=== PATIENT | male | born 1930 | race African-American/Black ===

== ENCOUNTER 2017-07-29 07:55 | Day surgery (SDC) | payer OTHER ==
[~2017-07-29] VITALS: Ht 167.6 cm; Wt 100.5 kg
[2017-07-29] VITALS (8 sets, daily range): BP systolic 143–168; BP diastolic 62–81; PULSE 52–84; RESP 16–17; TEMP 98–98.8; O2SAT 97–99
[2017-07-29] MEDS ORDERED: IODIXANOL 320 MG/ML 50 ML VIAL (for Rad CT) OTHER ONE (07:56)
[2017-07-29] MEDS ORDERED: POVIDONE IODINE 5% (ANTISEPSIS KIT) 4 APPLICATIONS EACH NARE PRN (08:45)
[2017-07-29] MEDS ORDERED: METOPROLOL TARTRATE 25 MG TAB PO PRN (08:45)
[2017-07-29] MEDS ORDERED: LACTATED RINGER'S 1000 ML IV PRN (08:45)
[2017-07-29] MEDS ORDERED: INSULIN HUMAN REGULAR 1,000 UNITS/10 ML VIAL SQ PRN (08:45)
[2017-07-29] MEDS ORDERED: LORazepam 1 MG TAB SL SCH (08:45)
[2017-07-29] MEDS ORDERED: CHLORHEXIDINE GLUCONATE 2 % 1 PACK (2 CLOTHS) TOPICAL SCH (08:45)
[2017-07-29] MEDS ORDERED: POVIDONE IODINE 5% (ANTISEPSIS KIT) 4 APPLICATIONS EACH NARE SCH (08:45)
[2017-07-29] MEDS ORDERED: CHLORHEXIDINE GLUCONATE 2 % 1 PACK (2 CLOTHS) TOPICAL PRN (08:45)
[2017-07-29] MEDS ORDERED: ceFAZolin 2 GM PREMIX 50 ML IV SCH (08:45)
[2017-07-29] MEDS ORDERED: VANCOMYCIN 1000 MG/NS 250 ML IV SCH ×2 (08:45)
[2017-07-29] MEDS ORDERED: SODIUM CHLORID 0.9% 500 ML IV PRN (08:45)
[2017-07-29] MEDS ORDERED: ALLO100T PO (08:50)
[2017-07-29 08:53] LABS: BASOPHIL % 0.8 % (0.0-2.0); EOSINOPHIL # 0.2 TH/MM3 (0-0.4); EOSINOPHIL % 4.5 % (0.0-4.0); HEMATOCRIT 29.8 % (39.0-51.0); HEMOGLOBIN 9.9 GM/DL (13.0-17.0); LYMPH % 23.1 % (9.0-44.0); LYMPHOCYTE # 1.1 TH/MM3 (1.0-4.8); MEAN CELL VOLUME 92.6 FL (80.0-100.0); MEAN CORPUSCULAR HEMOGLOBIN 30.7 PG (27.0-34.0); MEAN CORPUSCULAR HGB CONC 33.1 % (32.0-36.0); MEAN PLATELET VOLUME 8.2 FL (7.0-11.0); MONO % 8.9 % (0.0-8.0); MONOCYTE # 0.4 TH/MM3 (0-0.9); NEUT % 62.7 % (16.0-70.0); PLATELET COUNT 207 TH/MM3 (150-450); RED BLOOD COUNT 3.22 MIL/MM3 (4.50-5.90); RED CELL DISTRIBUTION WIDTH 16.2 % (11.6-17.2); WHITE BLOOD COUNT 4.8 TH/MM3 (4.0-11.0)
[2017-07-29] MEDS ORDERED: LOSA100T PO (08:53)
[2017-07-29] MEDS ORDERED: TRAM50TA PO (08:53)
[2017-07-29] MEDS ORDERED: TAMS0.4C4 PO (08:53)
[2017-07-29] MEDS ORDERED: CALC0.25 PO (08:53)
[2017-07-29] MEDS ORDERED: PANT40TA3 PO (08:53)
[2017-07-29] MEDS ORDERED: CHOL10008 PO (08:53)
[2017-07-29] MEDS ORDERED: HYDR-3799 PO (08:53)
[2017-07-29] MEDS ORDERED: FURO40TA PO (08:53)
[2017-07-29] MEDS ORDERED: MUPIROCIN 2% OINT 1 APPLIC/GM SYR NASAL SCH (09:00)
[2017-07-29] MEDS: NS 1000 ML IV SCH (09:00)
[2017-07-29 09:02] LABS: INTERNATIONAL NORMALIZED RATIO 1.1 RATIO; PROTHROMBIN TIME - PATIENT 11.3 SEC (9.8-11.6)
[2017-07-29 09:08] LABS: BICARBONATE 26.8 MEQ/L (21.0-32.0); CALCIUM 9.1 MG/DL (8.5-10.1); CREATININE 4.37 MG/DL (0.60-1.30)
[2017-07-29] MEDS ORDERED: MIDAZOLAM HCL 2 MG/2 ML VIAL ONE (11:50)
[2017-07-29] MEDS ORDERED: PROPOFOL 200 MG/20 ML AMP IV ONE (12:00)
[2017-07-29] MEDS ORDERED: PHENYLEPH/NS 1000 MCG/10 ML SYR IV ONE (12:00)
[2017-07-29] MEDS ORDERED: LIDOCAINE HCL 1% PF 5 ML SYRINGE OTHER ONE (12:00)
[2017-07-29] MEDS ORDERED: GLYCOPYRROLATE 1 MG/5 ML SYRINGE IV PUSH ONE (12:00)
[2017-07-29] MEDS ORDERED: HEPARIN SODIUM - IV 10,000 UNITS/10 ML VIAL ONE ×2 (12:02→12:14)
[2017-07-29] MEDS ORDERED: HEPARIN-NS/PF FLUSH BAG 1,000 ML IV FLUSH ONE ×2 (12:02→12:03)
[2017-07-29] MEDS ORDERED: ceFAZolin INJ 1,000 MG VIAL ONE (12:11)
--- NOTE | 2017-07-29 14:01 | CATHPROC ---
Patient Name: CHRISTY CLAY Study #: [id number] Initial MD: Ariadne Lynch Date of : 1930 Study Date: 07/29/2017 Cardiac Catheterization Report 07/29/2017 2:01:51 PM Financial #: [id number] 1 of 9 Patient Name: CHRISTY CLAY Study #: [id number] Initial MD: Ariadne Lynch Date of : 1930 Study Date: 07/29/2017 Entire Case Report Patient Information Patient Name CHRISTY CLAY Date of 1930 Age 86 years Financial # [id number] Gender M AlternateID Lab Number 6 Room Number DC04 Height (in) 66.0 Height (cm) 167.6 BSA 2.08 Weight (lbs) 220.0 Weight (kg) 100.0 Patient Address/Phone Number Home Address [facility] Home Phone Number [phone] [facility] [place] [address] Study Information Study Number Admission Scheduled Start Study Start [id number] Jul 29 2017 7:55AM 07/29/2017 Jul 29 2017 11:34AM [place] Service Cardiac Pacer/ICD Admit Source Facility Department Other [facility] - Cartoon Artist Physician and Clinical Staff Initial Ariadne Clarke Energy Control Officer Rosanne Sam,COLD MEAT COOK TECH2 Other Anesthesia, POLICY WRITER SALES Recorder Vanessa Parsons,RN Scrub Vero Turner,MOBILE APPLICATION ARCHITECT Procedures Performed Procedure Location (Site) Vessel Name Venogram Fem Vein (right) Femoral Vein Wire insertion Fem Art (right) Femoral Art Wire insertion Fem Vein (right) Femoral Vein 07/29/2017 2:01:51 PM Financial #: [id number] 2 of 9 Patient Name: CHRISTY CLAY Study #: [id number] Initial MD: Ariadne Lynch Date of : 1930 Study Date: 07/29/2017 Equipment Time Pattern Keeper Description Size Mfg Part Number Used/Scraped BIOSCurazy [id number] 12:18 SET, TUBING COOLFLOW * Used INC. *[id number] 12:15 COOK/PACER DILATOR SET (MICRA) FR8-12 Used *[id number] WIRE, GUIDE AMPLATZ STIFF [id number] 12:15 COOK/PACER 3MMJ Used 180CM *[id number] WIRE, GUIDE AMPLATZ STIFF [id number] 12:51 COOK/PACER 3MMJ Used 180CM *[id number] WIRE, HYDROSTEER 150CM [id number] 12:49 DAIG/[employer] 150CM Used ANGLED GLIDE *[id number] ENDOVASCULAR CATHETER, FR5 TRAILBLAZER [id number] 12:49 90CM Used COMPANY .035 *[id number] [id number] 12:15 MEDLINE INDUSTRIES PACK, CCL CUSTOM * Used *[id number] 12:15 MEDLINE PACER STEPHENS, LIMB * 2530 *[id number] Used [id number] 12:15 NAMIC TUBING, HIGH PRESSURE 20" 20" Used *[id number] [id number] 12:17 NAMIC TUBING, HIGH PRESSURE 20" 20" Used *[id number] 12:08 NYCOMED OMNIPAQUE, 300 MG, 50ML 50ML [id number] Used SUTURE, 0 ETHIBOND [CT1] (CX21D), 8pk [id number] 12:15 R[employer] MEDICAL BLANKET,WARM AIR CCL * Used *[id number] 044615 12:48 [employer] LIVEWIRE, QUAD, MED SWEEP FR 6 Used *[id number] 13:45 VITATRON MEDTRONIC MONITOR, PACEMAKER\\ICD 72601V Used 12:15 VITATRON MEDTRONIC MONITOR, PACEMAKER\\ICD 16838G Used [id number] 12:17 VITATRON [employer] SHEATH, INTRODUCER (MICRA) Used *[id number] SYSTEM, TRANS-CATHETER [id number] 12:15 VITATRON MEDTRONIC Used PACING (MICRA) *[id number] Equipment Model, Serial, Lot Number and Expiration Data Description Model Number Serial Number Lot Number Expiration Date CATHETER, FR5 TRAILBLAZER .035 [id number] 08-17-2019 LIVEWIRE, QUAD, MED SWEEP [id number] 10-15-2019 SYSTEM, TRANS-CATHETER PACING [id number] 10-28-2018 (MICRA) WIRE, GUIDE AMPLATZ STIFF [id number] 01-15-2022 180CM WIRE, HYDROSTEER 150CM [id number] 04-16-2020 ANGLENeva DAVENPORT 07/29/2017 2:01:51 PM Financial #: [id number] 3 of 9 Patient Name: CHRISTY CLAY Study #: [id number] Initial MD: Ariadne Lynch Date of : 1930 Study Date: 07/29/2017 Insurance Information Insurance Payor Private Health Insurance Third Constitution Party Third Constitution Party Number [facility] Medication Medication Total Dose (Bolus/Oral) Medication Total Dosage/Unit 2% XYLOCAINE 150 mL HEPARIN 7000 units Medications (Bolus/Oral) Medication Time Given Dosage/Unit Administered By Reason 2% XYLOCAINE 07/29/2017 12:21:24 PM 50 mL Ariadne Lynch 50 mL 2% XYLOCAINE given in lab by Ariadne Lynch in Right Groin via Subcutaneous. Ordered by Suha Lynch. 2% XYLOCAINE 07/29/2017 12:25:40 PM 50 mL Ariadne Lynch 50 mL 2% XYLOCAINE given in lab by Ariadne Lynch in Left Groin via Subcutaneous. Ordered by James Lynch. HEPARIN 07/29/2017 12:39:27 PM 4000 units Anesthesia, POLICY WRITER SALES As per physicians ve rbal order 4000 units HEPARIN given in lab by Anesthesia, POLICY WRITER SALES via Peripheral IV. Ordered by Ariadne Lynch. Reas on: As per physicians verbal order. 2% XYLOCAINE 07/29/2017 12:44:27 PM 50 mL Ariadne Lynch 50 mL 2% XYLOCAINE given in lab by Ariadne Lynch in Right Groin via Subcutaneous. Ordered by Suha Lynch. HEPARIN 07/29/2017 1:05:29 PM 3000 units Anesthesia, POLICY WRITER SALES As per physicians christopher bal order 3000 units HEPARIN given in lab by Anesthesia, POLICY WRITER SALES via Peripheral IV. Ordered by Ariadne Lynch. Reas on: As per physicians verbal order. 07/29/2017 2:01:51 PM Financial #: [id number] 4 of 9 Patient Name: CHRISTY CLAY Study #: [id number] Initial MD: Ariadne Lynch Date of : 1930 Study Date: 07/29/2017 Initial Case Assessment Cardiovascular HR Rhythm NIBP Chest Pain 58 2nd*AVB 196/93 0 Edema Present Skin color Skin None Normal Warm Dry Circulatory - Right Pulses Dorsalis Pedis 2 Scale (0,1,2,3,4,d) Circulatory - Left Pulses Dorsalis Pedis 3 Scale (0,1,2,3,4,d) Circulatory - Lower Extremities Color Lower Right Color Lower Left Normal Normal Neurological State Oriented to time-place- Alert Moves all extremities person Respiration - General Respiration Rate SpO2 (%) (B/min) 18 99 07/29/2017 2:01:51 PM Financial #: [id number] 5 of 9 Patient Name: CHRISTY CLAY Study #: [id number] Initial MD: Ariadne Lynch Date of : 1930 Study Date: 07/29/2017 Final Case Assessment Cardiovascular HR Rhythm NIBP Chest Pain 53 sr 100/59 0 Edema Present Skin color Skin Mild Normal Warm Dry Circulatory - Right Pulses Dorsalis Pedis 2 Scale (0,1,2,3,4,d) Circulatory - Left Pulses Dorsalis Pedis 3 Scale (0,1,2,3,4,d) Circulatory - Lower Extremities Color Lower Right Color Lower Left Normal Normal Neurological State Lethargic Moves all extremities Respiration - General Respiration Rate SpO2 (%) O2 (lpm) (B/min) 16 100 6 Chronological Log Time Study Chronological Log 11:51:26 Patient arrived via Bed. 11:51:26 Patient Name, D.O.B, / Armband Verified By R.N. 11:51:27 Consent signed by the physician and the patient and verified by the Cartoon Artist staff. 11:51:28 History and physical on the chart. 11:51:28 Verbal Stimulation=2 Physical Stimulation=2 Airway=2 Respiration=2 TOTAL=8. (0=absent, 1=li mited, 2=present) 11:51:29 Pre-op and post- op instructions given; patient acknowledges understanding of instructions. 11:51:29 Anesthesia at bedside. Assumes care of patient. 11:51:30 Patient has been NPO for More than 6Hrs. 11:51:31 Skin Breakdown- none per pt 07/29/2017 2:01:51 PM Financial #: [id number] 6 of 9 Patient Name: CHRISTY CLAY Study #: [id number] Initial MD: Ariadne Lynch Date of : 1930 Study Date: 07/29/2017 11:51:32 Patient Warmer Placed on the Table. 11:51:32 Disposable Defibrillator Pads Placed On Patient. 11:51:33 Merlin Prominences Protected 11:51:36 A # 22 IV was noted in the Forearm (right). Grade = 0 0.9% NaCl @ KVO 11:51:46 A # 20 IV was noted in the Antecubital (left). Grade = 0 0.9% NaCl @ KVO Assessment: Initial Case, HR=58 BPM, Rhythm=2nd*AVB, IXKU=337/93 mmhg, Chest Pain=0, Edema=None , Color=Normal, Skin = Warm, Dry Right Pulses: Farhan Ped=2 Left Pulses: Farhan Ped=3 12:00:12 Lower Right Extremities: Color=Normal Lower Left Extremities: Color=Normal Neurological: State=Alert, Ox3, FARRIS Respiration: Resp=18 B/min, SpO2=99 % 12:04:20 Table restraints applied according to hospital policy 12:06:41 Reference ECG taken 12:18:13 MD paged 12:19:48 MD arrived. Time Out. Correct patient, procedure, procedure equipment, site and side verified with physicia n present. Time 12:20:31 concurred by MD, individual staff and POLICY WRITER SALES. Time Out #2 - Consents verified, patient in correct position, all results are labled and displa yed, safety precautions 12:20:35 taken, antibiotics administered. Time out concurred by MD, individual staff and POLICY WRITER SALES in procedu re 12:20:36 Case Start 12:21:24 50 mL 2% XYLOCAINE given in lab by Ariadne Lynch in Right Groin via Subcutaneous. Ordered b Ariadne Sunshine. 12:25:09 Vascular access was obtained in the Subclav. Vein (Rt). 12:25:40 50 mL 2% XYLOCAINE given in lab by Ariadne Lynch in Left Groin via Subcutaneous. Ordered by Ariadne Lynch. 12:25:56 A WIRE, GUIDE AMPLATZ STIFF 180CM 3MMJ was inserted via Fem Art (right). 12:26:04 Wire unable to pass; removed. Failed access right; moved to left side 12:26:50 Vascular access was obtained in the Fem Vein (left). 12:27:00 A WIRE, GUIDE AMPLATZ STIFF 180CM 3MMJ was inserted via Fem Art (right). 12:28:22 Figure [address] to Left Femoral Vein. 12:29:36 A DILATOR SET (MICRA) FR8-12 was advanced into the Fem Vein (left) using the Modified Seldi nger technique. 8 A SHEATH, INTRODUCER (MICRA) was exchanged in the Fem Vein (left). This was necessary in order to accomodate 12:30:54 a larger catheter. 12 A SHEATH, INTRODUCER (MICRA) was exchanged in the Fem Vein (left). This was necessary in order to accomodate 12:31:10 a larger catheter. 16 A SHEATH, INTRODUCER (MICRA) was exchanged in the Fem Vein (left). This was necessary in order to accomodate 12:32:40 a larger catheter. 20 12:33:43 Anesthesiologist in to oversee case care and left. 4000 units HEPARIN given in lab by Anesthesia, POLICY WRITER SALES via Peripheral IV. Ordered by Ariadne Lynch . Reason: As per 12:39:27 physicians verbal order. 12:39:44 A SHEATH, INTRODUCER (MICRA) was advanced into the Fem Vein (left) using the Modified Seldi nger technique. 12:44:02 Unable to pass on left. Moving to right again. 12:44:27 50 mL 2% XYLOCAINE given in lab by Ariadne Lynch in Right Groin via Subcutaneous. Ordered b y Ariadne Lynch. 12:44:36 Vascular access was obtained in the Fem Vein (right). 07/29/2017 2:01:51 PM Financial #: [id number] 7 of 9 Patient Name: CHRISTY CLAY Study #: [id number] Initial MD: Ariadne Lynch Date of : 1930 Study Date: 07/29/2017 12:44:44 Attempted wire insertion but unable to pass. 12:44:48 A wire was inserted via Fem Vein (right). 12:45:33 The Fem Vein (right) was manually injected with 7 cc's of contrast. OMNIPAQUE, 300 MG, 50ML 50ML used. 12:47:09 Live wire in 8fr introducer on Right side. A LIVEWIRE, QUAD, MED SWEEP FR 6 was advanced vis Fem Vein (right). Placement was visually conf irmed under 12:48:14 fluoroscopy. 12:49:55 A CATHETER, FR5 TRAILBLAZER .035 90CM was advanced over a wire. 12:51:39 Trailblazer out. 12:52:22 A WIRE, GUIDE AMPLATZ STIFF 180CM 3MMJ was inserted via Fem Vein (right). 12:53:53 A DILATOR SET (MICRA) FR8-12 was advanced into the Fem Vein (right) using the Modified Seld sandra technique. 8 A DILATOR SET (MICRA) FR8-12 was exchanged in the Fem Vein (right). This was necessary in order to accomodate a 13:00:53 larger catheter. 12 A DILATOR SET (MICRA) FR8-12 was exchanged in the Fem Vein (right). This was necessary in order to accomodate a 13:02:54 larger catheter. 16 A DILATOR SET (MICRA) FR8-12 was exchanged in the Fem Vein (right). This was necessary in order to accomodate a 13:03:09 larger catheter. 20 A SHEATH, INTRODUCER (MICRA) was exchanged in the Fem Vein (right). This was necessary in order to accomodate 13:04:34 a larger catheter. 3000 units HEPARIN given in lab by Anesthesia, POLICY WRITER SALES via Peripheral IV. Ordered by Ariadne Lynch . Reason: As per 13:05:29 physicians verbal order. 13:06:05 Dilator and wire removed. Heparin Gtt attached to introducer. 13:07:32 Micra device prepped and set up 13:08:59 A SYSTEM, TRANS-CATHETER PACING (MICRA) was advanced via RFV and placed in RV. 13:11:32 Micra deployed and verified under fluoroscopy in 2 views. 13:12:02 The RV/Micra impedance and threshold being tested. 13:27:17 Micra repositioned and threshold retested. 13:37:50 Delivery system and introducer removed from FVR. 13:38:[address] 20 min pressure held by DC. Figure 8 knot to be removed at 19:30. 13:41:14 Implant Procedure was performed. 13:41:20 A PPM Implant . (Single) Micra 13:49:49 DOCU called. Spoke to Guero. 13:50:04 Bedside Report will be given. 13:50:28 Implantable Device card placed in patient's chart. 13:50:32 No case complications noted. 13:50:33 Cine recording checked. 13:57:01 Defibrillator and ground pads removed. Skin intact. 14:00:00 Sterile dressing applied to sites 14:00:10 Case End 07/29/2017 2:01:51 PM Financial #: [id number] Patient Name: CHRISTY CLAY Study #: [id number] Initial MD: Ariadne Lynch Date of : 1930 Study Date: 07/29/2017 Assessment: Final Case, HR=53 BPM, Rhythm=sr, MHIY=147/59 mmhg, Chest Pain=0, Edema=Mild, Campbell r=Normal, Skin = Warm, Dry Right Pulses: Farhan Ped=2 Left Pulses: Farhan Ped=3 14:01:10 Lower Right Extremities: Color=Normal Lower Left Extremities: Color=Normal Neurological: State=Lethargic, FARRIS Respiration: Resp=16 B/min, EkK9=828 %, O2=6 lpm 14:08:[address] [facility] End Study - Contrast Media Used In Study Contrast Total Opened (mL) Total Used (mL) Total Wasted (mL) Omnipaque 50 7 43 End Study - Radiation Exposure Fluoro Time (minutes) 15.7 End Study - Sheaths Sheaths Pulled By Sheath Hold Time (min) Ariadne Lynch 20 End Study - Patient Disposition Complications Transferred To Interventional Outcome No Telemetry Bed successful 07/29/2017 2:01:51 PM Financial #: [id number]
[2017-07-29] MEDS ORDERED: traMADol HCL 50 MG TAB PO PRN (14:15)
--- NOTE | 2017-07-29 14:41 | MP ---
cc: YULISA ZEE M.D. DATE OF SURGERY: 07/29/2017 OPERATION Single chamber permanent pacemaker, Micra insertion. INDICATION Mr. Arnett is an 86-year-old -[place]er gentleman with history of AV block, symptomatic bradycardia, Mobitz type II, referred by Dr. Sofia for permanent pacemaker insertion. The risks, the nature and the benefit of the procedure are clearly stated to him. The risks include pneumothorax, cardiac perforation, stroke and even . The patient understood and agreed to proceed. PROCEDURE After written informed consent was obtained, the patient was brought to the EP lab where he was prepped and draped in the usual sterile fashion. Conscious sedation was initiated and maintained throughout the procedure by anesthesiologist. Once sedation was verified, the right inguinal area was anesthetized with 2% Xylocaine. Using modified Seldinger technique, the left femoral vein was cannulated on one occasion. I was unable to advance all the way the guidewire. Then I decided not to use contrast at this point. I cannulated the left femoral vein. The left femoral vein was cannulated on one occasion, one guidewire was advanced. Over the wire a stiff Amplatz was advanced. After multiple manipulation I was able to place it all the way to the superior vena cava. Then I did make a centimeter cut. Subsequently, I did pre-dilate the vein progressively. I was unable to advance most of the dilator after multiple times. At that point I did try to advance the dilator of the delivery system. I realized I cannot advance all the way to the common femoral vein. I decided to go back to the right femoral vein. At that point the wires were removed. 2-0 Ethibond suture were placed around the entry point in a pursestring fashion to prevent bleeding, was tied. Hemostasis was performed for 20 minutes manual pressure. Then I did advance the wire in the right femoral vein. I did shoot less than 5 ccs of contrast. I did realize there is ___ in the valve. At this point the wire was removed. I did advance 8 Belarusian dilator. Through the dilator I did advance a Glidewire. That was placed all the way to the superior vena cava. Subsequently, the quick cross was advanced over the Glidewire and the glide-wire were removed and the stiff Amplatz was advanced all the way to the superior vena cava. At this point the quick cross was removed. Then a centimeter incision was made. A 2-0 Ethibond suture were placed around the entry point to prevent backbleeding. At this point the access was predilated using a 8, 12, 16 and 20-Belarusian. Then the Micra ___ system was prepped and advanced. It was advanced all the way to the right atrium. At that point the pacemaker delivery system was advanced through the sheath and the sheath was placed in the septal area. It was delivered, after multiple measurement, after delivered the lead. I did realize threshold increased around 1.8. Multiple measurement was performed again, sensing dropped from 6-8.5 to around 4.0. At this point I decided to reposition the Micra. After multiple attempts I crossed the valve again and the delivery system was advanced over the device. The device was retrieved and repositioned. After adequate pacing and sensing threshold was obtained and there was good contractility of the attachment leg of the device, I decided to release the device. The dilator and the delivery system was removed. 2-0 Ethibond suture was tied at the exit point. Pressure dressing was applied for 20 minutes. That was a very complex and long case. No incident report. The patient tolerated the procedure. Blood loss less than 20 ccs and we used less than 15 ccs of contrast. 1. Implanted hardware. The implanted device is a [employer] model number [id number], serial number [id number]. 2. Threshold. The right ventricular pacing threshold in bipolar mode was 0.5 volts at 0.24 milliseconds. Lead impedance 540 ohms, R-wave at 6.3 mV. 3. Setting. The device set in VVIR 50, upper rate 120 beats per minute. CONCLUSION Successful permanent pacemaker insertion, that was a very complex and difficult case. COMMENT AND RECOMMENDATION The patient is going to be transferred to the recovery room. Will be observed and can be discharged home early in the morning. MD NETTA Hassan/RADHAL /1:49 PM /2:07 PM
[2017-07-29] MEDS ORDERED: oxyCODONE/ACETAMINOPHEN 5 MG/325 MG TAB PO PRN ×2 (15:00)
[2017-07-29] MEDS: hydrALAZINE HCL 25 MG TAB PO SCH (18:08)
[2017-07-29] MEDS ORDERED: TAMSULOSIN HCL 0.4 MG CAP PO SCH (21:00)
[2017-07-29] MEDS: ALLOPURINOL 100 MG TAB PO SCH (21:28)
[2017-07-30] VITALS (11 sets, daily range): BP systolic 133–150; BP diastolic 72–82; PULSE 52–64; RESP 18–19; TEMP 98.3–98.6; O2SAT 97
[2017-07-30 05:26] LABS: INTERNATIONAL NORMALIZED RATIO 1.1 RATIO; PROTHROMBIN TIME - PATIENT 11.4 SEC (9.8-11.6)
--- NOTE | 2017-07-30 08:26 | PD.CARD.PN ---
Subjective Subjective Remarks Feels okay. Objective Medications Current Medications Medications (Trade) Dose Ordered Sig/Nhan Route Start Time Stop Time Status Last Admin Sodium Chloride 1,000 ml @ 30 mls/hr Q24H IV 07/29/17 09:00 Cefazolin Sodium/ Dextrose 50 ml @ 100 mls/hr VOCATIONAL TRAINING INSTRUCTOR IV 07/29/17 08:45 08/01/17 08:44 Vancomycin HCl 1000 mg/Sodium Chloride 250 ml @ 250 mls/hr VOCATIONAL TRAINING INSTRUCTOR IV 07/29/17 08:45 08/01/17 08:44 (Ativan) 1 mg VOCATIONAL TRAINING INSTRUCTOR SL 07/29/17 08:45 08/01/17 08:44 (Betadine 5% Antisepsis Kit) 2 applic VOCATIONAL TRAINING INSTRUCTOR EACH NARE 07/29/17 08:45 08/01/17 08:44 (Bactroban Nasal 2% Oint) 1 applic VOCATIONAL TRAINING INSTRUCTOR NASAL 07/29/17 09:00 08/01/17 08:59 (Chlorhexidine 2% Cloth) 3 pack VOCATIONAL TRAINING INSTRUCTOR TOPICAL 07/29/17 08:45 08/01/17 08:44 Lactated Ringer's 1,000 ml @ 30 mls/hr Q24H PRN IV 07/29/17 08:45 08/01/17 08:44 Sodium Chloride 500 ml @ 30 mls/hr [id number] PRN IV 07/29/17 08:45 08/01/17 08:44 (Lopressor) 25 mg VOCATIONAL TRAINING INSTRUCTOR PRN PO 07/29/17 08:45 08/01/17 08:44 (Betadine 5% Antisepsis Kit) 1 applic VOCATIONAL TRAINING INSTRUCTOR PRN EACH NARE 07/29/17 08:45 08/01/17 08:44 (Chlorhexidine 2% Cloth) 3 pack VOCATIONAL TRAINING INSTRUCTOR PRN TOPICAL 07/29/17 08:45 08/01/17 08:44 (NovoLIN R INJ) See Protocol Table ... VOCATIONAL TRAINING INSTRUCTOR PRN SQ 07/29/17 08:45 08/01/17 08:44 (Percocet 5-325 Mg) 1 tab Q4H PRN PO 07/29/17 15:00 (Percocet 5-325 Mg) 2 tab Q4H PRN PO 07/29/17 15:00 (Zyloprim) 100 mg BID PO 07/29/17 21:00 07/29/17 21:28 (Rocaltrol) 0.25 mcg DAILY PO 07/30/17 09:00 (Vitamin D3) 1,000 units DAILY PO 07/30/17 09:00 (Lasix) 40 mg DAILY PO 07/30/17 09:00 (Apresoline) 25 mg TID PO 07/29/17 18:00 07/29/17 18:08 (Cozaar) 100 mg DAILY PO 07/30/17 09:00 (Protonix) 40 mg DAILY PO 07/30/17 09:00 (Flomax) 0.4 mg HS PO 07/29/17 21:00 07/29/17 21:28 (Ultram) 50 mg Q4H PRN PO 07/29/17 14:15 Vital Signs / I&O Vital Signs Date Time Temp Pulse Resp B/P (MAP) Pulse Ox O2 Delivery O2 Flow Rate FiO2 07/30/17 06:13 52 07/30/17 05:20 53 07/30/17 04:20 58 07/30/17 03:20 98.6 56 18 133/82 (99) 97 07/30/17 03:10 58 07/30/17 02:12 64 07/30/17 01:00 54 07/30/17 00:12 57 07/29/17 23:27 57 07/29/17 23:27 98.8 57 16 148/65 (92) 98 07/29/17 22:32 58 07/29/17 21:37 57 07/29/17 20:45 52 07/29/17 19:32 98.2 84 17 143/62 (89) 97 07/29/17 19:16 58 07/29/17 17:42 98.5 60 16 148/70 (96) 97 07/29/17 14:14 96 Room Air 07/29/17 08:42 98.0 64 16 168/81 (110) 99 I/O 07/29/17 07/29/17 07/29/17 07/30/17 07/30/17 07/30/17 07:00 15:00 23:00 07:00 15:00 23:00 Intake Total 120 ml Output Total 375 ml Balance -255 ml Intake Oral 120 ml Output Urine Total 375 ml # Voids 8 # Bowel Movements 0 Physical Exam GENERAL: Well-nourished, well-developed patient. SKIN: Warm and dry. Left groin site with intact suture, being removed by the nurse. Right groin site soft with no bruising or bleeding. HEAD: Normocephalic. EYES: No scleral icterus. No injection or drainage. NECK: Supple, trachea midline. No JVD or lymphadenopathy. CARDIOVASCULAR: Regular rate and rhythm without murmurs, gallops, or rubs. RESPIRATORY: Breath sounds equal bilaterally. No accessory muscle use. GASTROINTESTINAL: Abdomen soft, non-tender, nondistended. EXTREMITIES: No cyanosis, or edema. NEUROLOGICAL: Awake, alert, and oriented x 3. Non-focal. Laboratory Laboratory Tests Test 07/29/17 08:25 07/30/17 03:50 White Blood Count 4.8 TH/MM3 Red Blood Count 3.22 MIL/MM3 Hemoglobin 9.9 GM/DL Hematocrit 29.8 % Mean Corpuscular Volume 92.6 FL Mean Corpuscular Hemoglobin 30.7 PG Mean Corpuscular Hemoglobin Concent 33.1 % Red Cell Distribution Width 16.2 % Platelet Count 207 TH/MM3 Mean Platelet Volume 8.2 FL Neutrophils (%) (Auto) 62.7 % Lymphocytes (%) (Auto) 23.1 % Monocytes (%) (Auto) 8.9 % Eosinophils (%) (Auto) 4.5 % Basophils (%) (Auto) 0.8 % Neutrophils # (Auto) 3.0 TH/MM3 Lymphocytes # (Auto) 1.1 TH/MM3 Monocytes # (Auto) 0.4 TH/MM3 Eosinophils # (Auto) 0.2 TH/MM3 Basophils # (Auto) 0.0 TH/MM3 CBC Comment DIFF FINAL Differential Comment Prothrombin Time 11.3 SEC 11.4 SEC Prothromb Time International Ratio 1.1 RATIO 1.1 RATIO Activated Partial Thromboplast Time 25.2 SEC 25.0 SEC Blood Urea Nitrogen 83 MG/DL Creatinine 4.37 MG/DL Random Glucose 87 MG/DL Calcium Level 9.1 MG/DL Sodium Level 141 MEQ/L Potassium Level 4.1 MEQ/L Chloride Level 107 MEQ/L Carbon Dioxide Level 26.8 MEQ/L Anion Gap 7 MEQ/L Estimat Glomerular Filtration Rate 16 ML/MIN Assessment and Plan Problem List: (1) AV block ICD Codes: I44.30 - Unspecified atrioventricular block Plan: Pacing appropriately. (2) S/P cardiac pacemaker procedure ICD Codes: Z95.0 - Presence of cardiac pacemaker Plan: Stable status post insertion of Micra pacemaker. Discharge home. Follow -up with Dr. torres in 2 weeks per my discussion with him. Kasey Keyes Jul 30, 2017 08:26
[2017-07-30] MEDS: NS 1000 ML IV SCH (08:53)
[2017-07-30] MEDS: hydrALAZINE HCL 25 MG TAB PO SCH (08:54)
[2017-07-30] MEDS: ALLOPURINOL 100 MG TAB PO SCH (08:54)
[2017-07-30] MEDS ORDERED: CHOLECALCIFEROL (VIT D3) 1000 UNIT TAB PO SCH (09:00)
[2017-07-30] MEDS ORDERED: CALCITRIOL 0.25 MCG CAP PO SCH (09:00)
[2017-07-30] MEDS ORDERED: LOSARTAN 50 MG TAB PO SCH (09:00)
[2017-07-30] MEDS ORDERED: PANTOPRAZOLE SOD 40 MG DELAYED RELEASE TAB PO SCH (09:00)
[2017-07-30] MEDS ORDERED: FUROSEMIDE 40 MG TAB PO SCH (09:00)
--- NOTE | 2017-07-31 07:38 | EKG ---
Date Performed: 07/29/2017 Time Performed: 08:40:30 PTAGE: 86 years EKG: Possible ectopic atrial rhythm Possible anteroseptal infarct - age undetermined Compared to previous tracing the rhythm is now ectopic atrial Abnormal ECG PREVIOUS TRACING : 12/12/2001 13.30 DOCTOR: Demetris Wayne Interpretating Date/Time 07/31/2017 07:37:22
--- NOTE | 2017-07-31 07:38 | EKG ---
Date Performed: 07/29/2017 Time Performed: 16:03:54 PTAGE: 86 years EKG: Sinus rhythm with 1st degree A-V block Demand pacing Compared to previous tracing demand pacing appears to be pre sent Abnormal ECG PREVIOUS TRACING : 07/29/2017 08.40 DOCTOR: Demetris Wayne Interpretating Date/Time 07/31/2017 07:37:42
--- NOTE | 2017-07-31 07:40 | EKG ---
Date Performed: 07/30/2017 Time Performed: 05:50:36 PTAGE: 86 years EKG: Sinus rhythm with demand pacing Possible anteroseptal infarct - age undetermined Since previous tracing, no signi ficant change noted Abnormal ECG PREVIOUS TRACING : 07/29/2017 16.03 DOCTOR: Demetris Wayne Interpretating Date/Time 07/31/2017 07:39:45
== END 2017-07-30 10:20 | disposition home or self-care (01) ==
LOC: HDOC 07:55 → HDIC 07:56 → HCPC 18:02 → HDOC 07-30 10:20
PROVIDERS: ATTEND Internal Medicine Interventional Cardiology
DX: I44.1 Atrioventricular block, second degree (principal); I44.0 Atrioventricular block, first degree; Z00.6 Encounter for examination for normal comparison and control in clinical research program; I49.3 Ventricular premature depolarization; I13.11 Hypertensive heart and chronic kidney disease without heart failure, with stage 5 chronic kidney disease, or end stage renal disease; N18.5 Chronic kidney disease, stage 5; I35.1 Nonrheumatic aortic (valve) insufficiency; E78.5 Hyperlipidemia, unspecified; I87.2 Venous insufficiency (chronic) (peripheral); J98.4 Other disorders of lung; I25.10 Atherosclerotic heart disease of native coronary artery without angina pectoris; I08.2 Rheumatic disorders of both aortic and tricuspid valves; G89.4 Chronic pain syndrome; R42 Dizziness and giddiness; R60.0 Localized edema
CPT/HCPCS: 00530; 0387T; 80048; 85025; 85610; 85730; 86850; 86900; 86901; 93005; C1730; C1786; J0690; J1644; J2250; J2370; J3010; Q9967